=== PATIENT | male | born 1980 | race Caucasian/White ===

== ENCOUNTER 2019-09-04 12:39 | Observation (INO) | payer OTHER ==
[~2019-09-04] VITALS: Ht 180.3 cm; Wt 90.0 kg
--- NOTE | 2019-09-04 13:00 | NUR ---
THIS IS A 38 YO M BIB [facility] W/ C/O RT INGUINAL HERNIA AND PAIN. PT REPORTS HE HAS HAD IT FOR 18 MONTHS. PT REPORTS INCREASED SWELLING, REDNESS AND PAIN. PT COOPERATIVE. DENIES MEDICAL HX. RESTING ON GURNEY, CONNECTED TO MONITORING. 2 OFFICERS AT BEDSIDE. ELIANE BENITO.
--- NOTE | 2019-09-04 13:23 | NUR ---
PIV STARTED, LABS DRAWN.
[2019-09-04 13:38] LABS: BASOPHILS # (AUTO) 0.02 x10^3/uL (0-0.1); BASOPHILS % (AUTO) 0 % (0-1); EOSINOPHILS # (AUTO) 0.02 x10^3/uL (0-0.4); EOSINOPHILS % (AUTO) 0 % (1-7); LYMPHOCYTES # (AUTO) 2.47 x10^3/uL (1-3.4); LYMPHOCYTES % (AUTO) 24 % (22-44); MD NO; MEAN CORPUSCULAR HEMOGLOBIN 30.9 pg (27.5-34.5); MEAN CORPUSCULAR HGB CONC 33.2 g/dL (33.2-36.2); MEAN CORPUSCULAR VOLUME 92.9 fL (81-97); MEAN PLATELET VOLUME 7.7 fL (7.4-10.4); MONOCYTES # (AUTO) 0.55 x10^3/uL (0.2-0.8); MONOCYTES % (AUTO) 6 % (2-9); NEUTROPHILS # (AUTO) 7.06 x10^3/uL (1.8-6.8); NEUTROPHILS % (AUTO) 70 % (42-75); PLATELET COUNT 422 x10^3/uL (130-400); RED BLOOD COUNT 4.89 x10^6/uL (4.38-5.82); RED CELL DISTRIBUTION WIDTH 13.7 % (9.4-14.8)
[2019-09-04 13:44] LABS: ALBUMIN 4.4 g/dL (3.4-5.0); ANION GAP 5 mmol/L (5-15); CALCIUM 9.6 mg/dL (8.5-10.1); CHLORIDE 105 mmol/L (98-107)
--- NOTE | 2019-09-04 13:46 | NUR ---
PT RREPORTS LAST PO MEAL WAS LAST NIGHT. HAD COFFEE THIS MORNING AT ABOUT 0630.
[2019-09-04 13:49] LABS: ALANINE AMINOTRANSFERASE 90 U/L (12-78); ALKALINE PHOSPHATASE 74 U/L (45-117); BILIRUBIN,TOTAL 1.9 mg/dL (0.2-1.0); CREATININE 1.02 mg/dL (0.7-1.3); TOTAL PROTEIN 8.6 g/dL (6.4-8.2)
[2019-09-04] MEDS ORDERED: SODIUM CHLORIDE FLUSH 10ML SYR IVF ONE (14:00)
--- NOTE | 2019-09-04 14:14 | NUR ---
PT TO CT.
[2019-09-04] MEDS ORDERED: OMNIPAQUE 350 MG/ML, 100ML BOTTLE ONE (14:27)
--- NOTE | 2019-09-04 14:31 | NUR ---
ALL TESTS RESULTED. PT IS UP FOR RECHECK AT THIS TIME.
[2019-09-04] MEDS ORDERED: MORPHINE SULFATE 4 MG/ML, 1ML ONE (14:44)
[2019-09-04] MEDS ORDERED: ONDANSETRON 2MG/ML, 2ML ONE ×2 (14:44→19:18)
[2019-09-04] MEDS ORDERED: ONDANSETRON 2MG/ML, 2ML IVPush ONE (15:00)
[2019-09-04] MEDS ORDERED: MORPHINE SULFATE 4 MG/ML, 1ML IVPush PRN (15:00)
--- NOTE | 2019-09-04 15:46 | NUR ---
PT RESTING ON GURNEY W/ CALL LIGHT IN REACH. 2 OFFICERS AT BEDSIDE. REPORTS RELIEF OF PAIN AFTER MEDS. RESP EVEN AND UNLABORED. AWAITING US RESULTS.
--- NOTE | 2019-09-04 16:46 | NUR ---
REPORT GIVEN TO OR.
--- NOTE | 2019-09-04 16:59 | NUR ---
PT TRANSPORTED TO OR.
[2019-09-04] MEDS ORDERED: BUPIVACAINE/PF-EPI 0.5% 1:200K ONE (17:08)
[2019-09-04] MEDS ORDERED: FENTANYL PF 250 MCG/5ML ONE (17:24)
[2019-09-04] MEDS ORDERED: BUPIVACAINE/PF-EPI 0.5% 1:200K INFIL ONE (17:55)
[2019-09-04] MEDS ORDERED: PROMETHAZINE 25 MG/ML, 1ML IV PRN (18:00)
[2019-09-04] MEDS ORDERED: KETOROLAC 30 MG/1 ML IV PRN (18:00)
[2019-09-04] MEDS ORDERED: DIAZEPAM 5 MG/ML, 2ML IVPush PRN (18:00)
[2019-09-04] MEDS ORDERED: MEPERIDINE/PF 25MG/0.5ML IVPush PRN (18:00)
[2019-09-04] MEDS ORDERED: ALBUTEROL SULFATE 2.5 MG/3 ML NPPB PRN (18:00)
[2019-09-04] MEDS ORDERED: hydrALAzine 20 MG/ML, 1ML IV PRN (18:00)
[2019-09-04] MEDS ORDERED: HYDROmorphone 2 MG/ML, 1ML IVPush PRN ×2 (18:00→22:00)
[2019-09-04] MEDS ORDERED: LABETALOL 5MG/ML, 20ML IV PRN (18:00)
[2019-09-04] MEDS ORDERED: OXYcodone 5 MG/5 ML ORAL.SOL UDC PO PRN (18:00)
[2019-09-04] MEDS ORDERED: ACETAMINOPHEN 325 MG TABLET PO PRN (18:00)
[2019-09-04] MEDS ORDERED: CEFAZOLIN 1,000 MG ONE (19:18)
[2019-09-04] MEDS ORDERED: DEXAMETHASONE 4 MG/ML, 1ML ONE (19:18)
[2019-09-04] MEDS ORDERED: ROCURONIUM 10MG/ML,5ML ONE (19:18)
[2019-09-04] MEDS ORDERED: SUCCINYLCHOLINE 20 MG/ML, 10ML ONE (19:18)
[2019-09-04] MEDS ORDERED: GLYCOPYRROLATE 0.2MG/1ML, 5ML ONE (19:18)
[2019-09-04] MEDS ORDERED: PROPOFOL 10 MG/ML, 20ML ONE (19:18)
[2019-09-04] MEDS ORDERED: NEOSTIGMINE 1 MG/ML, 10ML ONE (19:18)
[2019-09-04] MEDS ORDERED: SUGAMMADEX 200 MG/2 ML IVPush ONE (19:18)
[2019-09-04] MEDS ORDERED: KETOROLAC 30 MG/1 ML ONE (19:29)
[2019-09-04] MEDS ORDERED: FENTANYL PF 100 MCG/2ML ONE (19:33)
[2019-09-04] MEDS ORDERED: OXYcodone 5 MG/5 ML ORAL.SOL UDC ONE (19:33)
[2019-09-04] MEDS ORDERED: DIAZEPAM 5 MG/ML, 2ML ONE (19:33)
[2019-09-04] MEDS ORDERED: MEPERIDINE/PF 25MG/ML,1ML ONE (19:34)
[2019-09-04] MEDS: FENTANYL PF 100 MCG/2ML IV PRN ×2 (19:55→20:05)
[2019-09-04 20:30] VITALS: BP 125/85
[2019-09-04] MEDS ORDERED: ENOXAPARIN 40 MG/0.4 ML SQ SCH (21:00)
[2019-09-04 21:22] VITALS: BP 125/85
[2019-09-04] MEDS ORDERED: DIPHENHYDRAMINE 25 MG CAPSULE PO PRN (22:00)
[2019-09-04] MEDS ORDERED: ONDANSETRON 2MG/ML, 2ML IV PRN (22:00)
[2019-09-04] MEDS ORDERED: DIPHENHYDRAMINE 50 MG/ML, 1ML IV PRN (22:00)
[2019-09-04] MEDS: ACETAMINOPHEN 325 MG TABLET PO SCH (22:22)
[2019-09-04] MEDS: OXYcodone 5 MG/5 ML ORAL.SOL UDC PO PRN (23:22)
[2019-09-05 00:05] VITALS: BP 125/80
[2019-09-05] MEDS: KETOROLAC 30 MG/1 ML IV SCH ×2 (01:38→08:22)
[2019-09-05] MEDS: ACETAMINOPHEN 325 MG TABLET PO SCH ×2 (04:26→11:56)
[2019-09-05] MEDS: OXYcodone 5 MG/5 ML ORAL.SOL UDC PO PRN ×2 (04:26→08:22)
[2019-09-05 04:29] VITALS: BP 102/68
[2019-09-05 07:12] VITALS: BP 102/68
[2019-09-05] MEDS ORDERED: OXYC5TAB3 PO (09:43)
[2019-09-05] MEDS ORDERED: ACET-2065 PO (09:44)
[2019-09-05] MEDS ORDERED: IBUP-1222 PO (09:45)
[2019-09-05] MEDS ORDERED: DOCU-131 PO (09:45)
== END 2019-09-05 12:15 | disposition home or self-care (01) ==
LOC: ED 15:55 → 4NE 20:35 → ED 23:51 → 4NE 23:53
PROVIDERS: ADMIT Student in an Organized Health Care Education/Training Program; ATTEND Student in an Organized Health Care Education/Training Program
DX: K40.31 Unilateral inguinal hernia, with obstruction, without gangrene, recurrent (principal)
CPT/HCPCS: 36415; 49521; 74177; 76870; 80053; 83605; 85025; 88302; 96372; 96374; 96375; 96376; 99285; C1781; G0378; J0330; J0690; J1100; J1650; J1885; J2175; J2270; J2405; J2704; J3010; J3360; Q0163; Q9967; J2710